=== PATIENT | female | born 1940 | race Two or more races ===

== ENCOUNTER 2017-11-06 14:49 | Emergency (ER) | payer MEDICARE, OTHER ==
[~2017-11-06] VITALS: Ht 160 cm; Wt 51.7 kg
[2017-11-06 16:01] VITALS: BP 146/69
== END 2017-11-06 17:22 | disposition home or self-care (01) ==
LOC: ER 14:55
DX: S86.911A Strain of unspecified muscle(s) and tendon(s) at lower leg level, right leg, initial encounter (principal); X58.XXXA Exposure to other specified factors, initial encounter; Y93.89 Activity, other specified; Y92.89 Other specified places as the place of occurrence of the external cause; Y99.8 Other external cause status
CPT/HCPCS: 73562; 93971